=== PATIENT | female | born 1995 | race Two or more races ===

== ENCOUNTER 2019-06-30 14:39 | Emergency (ER) | payer OTHER ==
[2019-06-30 15:54] LABS: Bilirubin Negative (Negative); Blood, Urine Negative (Negative); Clarity Clear (Clear); Glucose, Urine (Dipstick) Normal (Negative); Leukocyte 75 Leu/uL (Negative); Nitrite Negative (Negative); Protein, Urine (Dipstick) 10 mg/dL (Neg-Trace); RBC/HPF 0-3 HPF (0-3); Squamous Epithelial 0-3 HPF (0-3); Urobilinogen Normal mg/dL (Less than 2)
[2019-06-30 16:09] LABS: Bacteria/HPF 1+ HPF (None Seen); Mucous/LPF 1+ LPF (<2+)
[2019-06-30 16:34] LABS: #Basophils 0.1 thou/uL (0.0-0.2); #Eosinphils 0.1 thou/uL (0.0-0.7); #Monocytes 0.9 thou/uL (0.11-0.59); #Neutrophils 7.6 thou/uL (1.40-6.50); %Basophils 1.1 % (0.0-1.0); %Eosinophils 1.1 % (0.0-10.0); %Lymphocytes 25.5 % (21.0-51.0); %Neutrophils 64.3 % (42.0-75.0); Hemoglobin 12.2 g/dL (12.0-16.0); Mean Corpuscular HGB CONC 32.6 g/dL (32.0-36.0); Mean Corpuscular Hemoglobin 26.1 pg (27.0-31.0); Mean Corpuscular Volume 80.1 fL (78.0-98.0); Mean Platelet Volume 8.4 fL (7.4-10.4); Platelet Count 340 thou/uL (130-400); RBC Distribution Width 14.7 % (11.5-14.5); Red Blood Cell (RBC) Count 4.69 mill/uL (4.20-5.40); White Blood Cell (WBC) Count 11.8 thou/uL (4.8-10.8)
[2019-06-30 16:55] LABS: ALT (SGPT) 12 U/L (8-55); AST (SGOT) 18 U/L (5-34); Albumin 4.4 g/dL (3.5-5.0); Alkaline Phosphatase 68 U/L (40-110); Anion Gap 11 mmol/L (10-20); BUN (Urea Nitrogen) 6 mg/dL (7.0-18.7); Bilirubin, Total 0.6 mg/dL (0.2-1.2); Calc. Creatinine Clearance 0 mL/min (70-130); Calcium 9.6 mg/dL (7.8-10.44); Carbon Dioxide 23 mmol/L (22-29); Chloride 103 mmol/L (98-107); Estimated GFR-MDRD Greater than 90; Globulin 3.2 g/dL (2.4-3.5); Glucose 75 mg/dL (70-105); Potassium 3.8 mmol/L (3.5-5.1); Protein, Total 7.6 g/dL (6.0-8.3); Sodium 133 mmol/L (136-145)
[2019-06-30] MEDS ORDERED: Ondansetron PF 4 MG/2 ML Vial ONE (16:56)
== END 2019-06-30 17:57 | disposition home or self-care (01) ==
LOC: ERS 14:39
DX: O21.9 Vomiting of pregnancy, unspecified (principal); O99.281 Endocrine, nutritional and metabolic diseases complicating pregnancy, first trimester; E06.9 Thyroiditis, unspecified; Z79.899 Other long term (current) drug therapy; Z3A.08 8 weeks gestation of pregnancy
CPT/HCPCS: 80053; 81003; 81015; 85025; 96361; 96374; J2405

== ENCOUNTER 2019-07-26 20:51 | Emergency (ER) | payer OTHER ==
[2019-07-26 22:01] LABS: #Basophils 0.1 thou/uL (0.0-0.2); #Eosinphils 0.1 thou/uL (0.0-0.7); #Lymphocytes 3.2 thou/uL (1.20-3.40); #Monocytes 0.7 thou/uL (0.11-0.59); #Neutrophils 8.1 thou/uL (1.40-6.50); %Basophils 0.7 % (0.0-1.0); %Eosinophils 1.2 % (0.0-10.0); %Lymphocytes 25.8 % (21.0-51.0); %Neutrophils 66.3 % (42.0-75.0); Hemoglobin 13.3 g/dL (12.0-16.0); Mean Corpuscular HGB CONC 33.4 g/dL (32.0-36.0); Mean Corpuscular Volume 83.8 fL (78.0-98.0); Mean Platelet Volume 8.5 fL (7.4-10.4); Platelet Count 304 thou/uL (130-400); RBC Distribution Width 15.9 % (11.5-14.5); Red Blood Cell (RBC) Count 4.76 mill/uL (4.20-5.40); White Blood Cell (WBC) Count 12.2 thou/uL (4.8-10.8)
[2019-07-26 22:21] LABS: ALT (SGPT) 19 U/L (8-55); AST (SGOT) 20 U/L (5-34); Albumin 4.7 g/dL (3.5-5.0); Alkaline Phosphatase 74 U/L (40-110); Anion Gap 14 mmol/L (10-20); BUN (Urea Nitrogen) 4 mg/dL (7.0-18.7); Bilirubin, Total 0.7 mg/dL (0.2-1.2); Calc. Creatinine Clearance 0 mL/min (70-130); Carbon Dioxide 21 mmol/L (22-29); Chloride 102 mmol/L (98-107); Estimated GFR-MDRD Greater than 90; Globulin 3.7 g/dL (2.4-3.5); Glucose 74 mg/dL (70-105); Potassium 3.4 mmol/L (3.5-5.1); Protein, Total 8.4 g/dL (6.0-8.3); Sodium 134 mmol/L (136-145)
[2019-07-26] MEDS ORDERED: Ondansetron PF 4 MG/2 ML Vial ONE (22:48)
[2019-07-26] MEDS ORDERED: Acetaminophen 500 MG TAB ONE (22:48)
[2019-07-26] MEDS ORDERED: Potassium Chloride 20 MEQ TAB ONE (22:48)
[2019-07-26 23:53] LABS: Bacteria/HPF 1+ HPF (None Seen); Bilirubin Negative (Negative); Blood, Urine Negative (Negative); Clarity Clear (Clear); Glucose, Urine (Dipstick) Normal (Negative); Leukocyte 250 Leu/uL (Negative); Mucous/LPF 3+ LPF (<2+); Nitrite Negative (Negative); Protein, Urine (Dipstick) 30 mg/dL (Neg-Trace); RBC/HPF 0-3 HPF (0-3); Urobilinogen Normal mg/dL (Less than 2)
== END 2019-07-26 23:55 | disposition home or self-care (01) ==
LOC: ERS 20:51
DX: O21.9 Vomiting of pregnancy, unspecified (principal); O99.282 Endocrine, nutritional and metabolic diseases complicating pregnancy, second trimester; E86.0 Dehydration; E03.9 Hypothyroidism, unspecified; Z79.899 Other long term (current) drug therapy; Z3A.19 19 weeks gestation of pregnancy
CPT/HCPCS: 80053; 81003; 81015; 83605; 84702; 85025; 96361; 96374; J2405

== ENCOUNTER 2019-08-05 08:41 | Outpatient (CLI) | payer OTHER ==
--- NOTE | 2019-08-05 11:58 | ULT ---
ULTRASOUND THYROID: DATE: 08/05/2019 HISTORY: 23-year-old female with thyroiditis. COMPARISON: None. FINDINGS: Right Lobe: 2.6 x 2.4 x 5.3 cm. Left Lobe: 1.9 x 2.0 x 4.8 cm. Isthmus: 1.2 cm AP. Within the right lobe, there is a large, multilobular, multiseptated, solid mass measuring approximat michael 2.8 x 1.9 x 3.1 cm, centered at midpole, and extending into upper and lower poles. Composition: Solid: 2 points Echogenicity: Hyperechoic: 1 point Shape: Wider than tall: 0 points Margin: Smooth: 0 points Echogenic foci: None: 0 points TI-RADS Category 3: Mildly suspicious Recommendation: FNA if greater than or equal to 2.5 cm. Follow-up if greater than or equal to 1.5 cm (at 1, 3, and 5 years). This nodule has increased blood flow within it demonstrated by Doppler. Actually, there is increased blood flow throughout the entire thyroid gland demonstrated by Doppler. No other discrete solid or cystic lesion is identified. IMPRESSION: 1. Thyromegaly and diffuse hyperemia of the thyroid gland: evidence for thyroiditis. 2. Large, greater than 3 cm, homogeneously hyperechoic solid mass dominating the right lobe of the t hyroid gland. For this Category 3 nodule, TI-RADS classification warrants ultrasound-guided fine need le aspiration biopsy. However, because the patient has thyroiditis, we recommend postponing the biops y until improvement in the thyroiditis after treatment. A follow-up thyroid ultrasound should be perf ormed after clinical improvement. If the dominant thyroid nodule has not decreased in size by then, t hen ultrasound-guided fine needle aspiration biopsy should be performed at that time. POS: [facility], [place]
== END 2019-08-05 08:42 | disposition home or self-care (01) ==
LOC: SCSULT 08:41
PROVIDERS: ATTEND Obstetrics & Gynecology
DX: E06.9 Thyroiditis, unspecified (principal); E01.0 Iodine-deficiency related diffuse (endemic) goiter; E07.89 Other specified disorders of thyroid
CPT/HCPCS: 76536

== ENCOUNTER 2020-02-05 16:34 | Day surgery (SDC) | payer OTHER ==
[2020-02-05 17:12] VITALS: BP 116/77; TEMP 98.3; BMI 29.6
[2020-02-05] MEDS ORDERED: hydrALAZINE 20 MG/ML VIAL SLOW IVP PRN (17:20)
--- NOTE | 2020-02-05 17:20 | PDOC.LDHP ---
Labor and Delivery H&P Chief complaint: contractions HPI: 24yo @ 39.3 complicated by hypothyroidism presents for contractions. Was seen in L&D triage on 01/28 for similar complaint, SVE was 150/-2. Was discharged with return precautions. Has had intermittent ctx since that time, waking and waning. Today had onset of ctx @ 0700 initially q8min and then increased to 3min with increased intensity. Denies any LOF, vaginal bleeding, vaginal discharge, dysuria, JOHN, vision changes, SOB, CP. Endorses good movement. States ctx are similar to previous presentations but just wanted to see what her cervix was. Current gestational age (weeks): 39 (39.3) Grav: 1 Para: 0 OB History Details: No prior Current complications: other (iron def anemia, hypothyroidism, chlamydia in first trimester with both herself and partner treated and MELISA negative.) Current medications: pre-yancy vitamins, iron, other (synthroid) Allergies/Adverse Reactions: Allergies Allergy/AdvReac Type Severity Reaction Status Date / Time No Known Allergies Allergy Verified 02/05/20 17:15 Social history: none - Physical Exam Abnormal vital signs: Tachycardia to 120s General: NAD, resting, breathing through contractions Heart: RRR Lungs: CTAB Abdomen: gravid Extremeties: no edema FHT: category 1 (accels, no deccels, baseline 150. moderate variability) - Vaginal Exam cm dilated: 1 Effacement: 50% Station: -3 - OB Labs Blood type: O RH: positive Antibody Screen: negative HIV: negative RPR: negative HEPSAg: negative GBS: negative Rubella: immune Additional Labs: ferritin 6 - Plan -: 24yo @ 39.3 complicated by iron def anemia and hypothyroidism presents for contractions #Labor r/o - Term SIUP @ 39.3 in G1 - ctx since 0700 this AM with increased frequency and intensity - Cat 1 strip with accels, no deccels, moderate variability, ctx q3-4min initially and then begin to space out - SVE 1.5/50/-3 by RN - Maternal tachycardia to 120s, afebrile and remained of vitals stable. No s/s of infection. Suspect tachycardia 2/2 pain - No change in SVE from last week triage check - Not in active labor, anticipate discharge home with labor precautions - Will given 1mg stadol for pain and monitor #Hypothyroidism - cont home synthroid #Iron def anemia - cont home iron PCP: Sonal Lyles Dispo: Monitor ctx and pain. Stadol for pain. Encourage PO hydration. Anticipate discharge home with labor precautions. Addendum - Attending - Attending Attestation Date/Time: 02/05/202034 I personally evaluated the patient and discussed the management with Dr. Burnett. I agree with the History, Examination, Assessment and Plan documented above. No e/o active labor. Tachycardia improved with IV fluids. D/c home with precautions.
[2020-02-05] MEDS ORDERED: Butorphanol Tartrate 1 MG/ML VIAL SLOW IVP SCH (18:00)
[2020-02-05] MEDS ORDERED: Butorphanol Tartrate 1 MG/ML VIAL IM SCH (18:00)
[2020-02-05] MEDS ORDERED: Lactated Ringer's 1,000 ML IV SCH (18:45)
--- NOTE | 2020-02-05 21:34 | PDOC.BPN ---
- Brief Progress Note Encounter Date: 02/05/20 Encounter Time: 07:45 Patient given 1L LR for continued tachycardia and little PO intake since presentation. HR improved to high 90s, low 100s after fluid bolus. Continued Cat 1 FHT. Ctx q4-5 minutes with episodes of increased and decreased frequency. Pain not much improved after stadol. Patient states pain has improved at home with Tylenol. Repeat SVE /-3. Discussed with patient she is still in latent labor and this may take hours to days to progress into active labor especially in setting of primigravida. Discussed labor precautions that would warrant return to L&D. Patient and fiance voiced understanding and agreement of discharge plan to continue latent labor at home. All questions answered. Patient discharge home with return precautions given.
== END 2020-02-05 20:35 | disposition home or self-care (01) ==
LOC: L&D/OP 16:34
PROVIDERS: ATTEND Advanced Practice Midwife
DX: O47.1 False labor at or after 37 completed weeks of gestation (principal); O99.283 Endocrine, nutritional and metabolic diseases complicating pregnancy, third trimester; E03.9 Hypothyroidism, unspecified; O99.013 Anemia complicating pregnancy, third trimester; D50.9 Iron deficiency anemia, unspecified; Z3A.39 39 weeks gestation of pregnancy; Z79.899 Other long term (current) drug therapy
CPT/HCPCS: 96360; 96372; 99283; J0595

== ENCOUNTER 2020-02-05 22:45 | Inpatient (IN) | payer OTHER ==
[~2020-02-05 22:45] MED LIST: Bupivacaine 0.25% HCL 30 ML VIAL ONE; Bupivacaine/Epinephrine 0.25% 30 ML VIAL ONE; EPHEDRINE 25 MG/5 ML SYRINGE ONE
[2020-02-05 23:08] VITALS: BMI 29.6
[2020-02-05 23:30] LABS: Amnisure Internal Control QC ACCEPTABLE (ACCEPTABLE); Amnisure Test RUPTURE DETECTED (No Rupture)
[2020-02-05] MEDS ORDERED: Carboprost 250 MCG/ML AMP IM PRN (23:50)
[2020-02-05] MEDS ORDERED: Lidocaine 1% (PF) 30 ML VIAL SC PRN (23:50)
[2020-02-05] MEDS ORDERED: Misoprostol 200 MCG TAB PR PRN (23:50)
[2020-02-05] MEDS ORDERED: Promethazine HCl 25 MG/ML VIAL IM PRN (23:50)
[2020-02-05] MEDS ORDERED: Ibuprofen 800 MG TAB PO PRN (23:50)
[2020-02-05] MEDS ORDERED: hydrALAZINE 20 MG/ML VIAL SLOW IVP PRN (23:50)
[2020-02-05] MEDS ORDERED: Butorphanol Tartrate 1 MG/ML VIAL SLOW IVP PRN (23:50)
[2020-02-05] MEDS ORDERED: Diphenoxylate HCl/Atropine Tablet PO PRN (23:50)
[2020-02-05] MEDS ORDERED: Ondansetron PF 4 MG/2 ML Vial IVP PRN (23:50)
[2020-02-05] MEDS ORDERED: Acetaminophen 500 MG TAB PO PRN (23:50)
[2020-02-05] MEDS ORDERED: Methylergonovine 0.2 MG/ML VIAL IM PRN (23:50)
[2020-02-06 00:19] LABS: Hemoglobin 10.1 g/dL (12.0-16.0); Mean Corpuscular HGB CONC 32.7 g/dL (32.0-36.0); Mean Corpuscular Hemoglobin 26.1 pg (27.0-31.0); Mean Corpuscular Volume 79.9 fL (78.0-98.0); Mean Platelet Volume 10.2 fL (7.4-10.4); Platelet Count 182 thou/uL (130-400); RBC Distribution Width 16.3 % (11.5-14.5); Red Blood Cell (RBC) Count 3.88 mill/uL (4.20-5.40); White Blood Cell (WBC) Count 15.7 thou/uL (4.8-10.8)
[2020-02-06 00:57] LABS: HBSAg Index 0.15 S/CO (0-0.99); Hep B Surf Ag Non-Reactive S/CO (NonReactive)
[2020-02-06 01:00] LABS: Syphilis Antibody Nonreactive (Nonreactive); Syphilis Antibody Index 0.04 S/CO (<1.00 Non-Reactive)
[2020-02-06] MEDS ORDERED: Fentanyl 4 mcg/Bup 0.1% Cadd 100 ML ONE (02:46)
[2020-02-06] MEDS: Lactated Ringer's 1,000 ML IV SCH ×2 (02:50→04:17)
[2020-02-06] MEDS ORDERED: Promethazine HCl 25 MG/ML VIAL IM PRN (03:23)
[2020-02-06] MEDS ORDERED: Acetaminophen 325 MG TAB PO PRN (03:23)
[2020-02-06] MEDS ORDERED: Ondansetron PF 4 MG/2 ML Vial IVP PRN ×2 (03:23→12:02)
[2020-02-06] MEDS ORDERED: diphenhydrAMINE 50 MG/ML VIAL IVP PRN (03:23)
[2020-02-06] MEDS ORDERED: Naloxone HCl 0.4 mg/ml Vial IVP PRN ×2 (03:23)
[2020-02-06] MEDS ORDERED: EPHEDRINE 25 MG/5 ML SYRINGE SLOW IVP PRN (03:23)
[2020-02-06] MEDS ORDERED: Lactated Ringer's 500 ML IV PRN (03:23)
[2020-02-06] MEDS ORDERED: Fentanyl 4 mcg/Bupivacaine 0.1% Cassette 100 ML EPIDURAL SCH (03:30)
[2020-02-06] MEDS ORDERED: Communication Order-Pharmacy FS SCH (03:30)
[2020-02-06] MEDS ORDERED: Bicitra 30 ML UDCUP ONE (08:57)
--- NOTE | 2020-02-06 08:57 | PDOC.LDHP ---
Labor and Delivery H&P Chief complaint: loss of fluid HPI: Patient reports loss of fluid. She was triaged the night before but sent home. After her water broke, she arrived back to the hospital and was 3 cm. Current gestational age (weeks): 39 (and 4) Due date: 02/09/20 Dating criteria: first trimester ultrasound Grav: 1 Para: 0 Current complications: none Abnormal US findings: No Past Medical History: Hypothyroid Current medications: pre- vitamins, other (Synthroid 50mcgs) Previous surgical history: other (Thyroid biopsy) Allergies/Adverse Reactions: Allergies Allergy/AdvReac Type Severity Reaction Status Date / Time No Known Allergies Allergy Verified 02/05/20 23:04 Social history: none - Physical Exam Vital signs reviewed and normal: yes General: breathing through contractions Lungs: nonlabored breathing Abdomen: gravid FHT: category 2 ( tachycardia. Decels after pushing.) - Vaginal Exam cm dilated: 10 Effacement: 100% Station: 0 - OB Labs Blood type: O RH: positive Antibody Screen: negative HIV: negative RPR: negative HEPSAg: negative 1 hour GCT: negative GBS: negative Urine drug screen: negative Rubella: immune - Assessment L&D Assessment: term rupture in membranes - Plan Plan: admit to L&D, informed consent obtained, anesthesia consult for pain management -: Treated for chorioamnionitis after temp of 101.6 rectal temp with Ampicillin 2gm q6 and Gentamycin 80mg Q8hr.
[2020-02-06] MEDS ORDERED: Ampicillin 2 GM in Sodium Chloride 0.9% 100 ML IVPB SCH ×2 (09:00→15:45)
[2020-02-06] MEDS ORDERED: Gentamicin Sulfate 80 MG in Premix Bag 1 BAG IVPB SCH ×2 (10:00→15:45)
--- NOTE | 2020-02-06 11:00 | PDOC.OPDEL ---
OB Operative/Delivery Note Delivery Dr/Surgeon: Light Pre-Delivery Diagnosis: active labor Procedure/Post Delivery Dx: spontaneous vaginal delivery Weeks gestation: 39 Anesthesia: epidural - Findings A Sex: male - 1 min: 8 - 5 min: 9 - Additional Findings/Plan Placenta delivered: spontaneous Estimated blood loss: 50mL Post delivery plan: routine recovery
[2020-02-06 11:47] LABS: SARS-CoV-2 MS2 Positive; SARS-CoV-2 N Gene Negative; SARS-CoV-2 S Gene Negative; SARS-CoV-2 by NAA Not Detected (NotDetected); SARS-CoV-2 orf1ab Negative
[2020-02-06] MEDS: NS / Oxytocin 40 units/1000ml 1,000 ML IV PRN ×2 (11:50→11:51)
[2020-02-06] MEDS ORDERED: NS / Oxytocin 40 units/1000ml 1,000 ML IV SCH (12:02)
[2020-02-06] MEDS ORDERED: Misoprostol 200 MCG TAB VAG PRN (12:02)
[2020-02-06] MEDS ORDERED: hydrALAZINE 20 MG/ML VIAL SLOW IVP PRN (12:02)
[2020-02-06] MEDS ORDERED: Lanolin Ointment 7 GM TUBE TOP PRN (12:02)
[2020-02-06] MEDS ORDERED: Methylergonovine 0.2 MG/ML VIAL IM PRN (12:02)
[2020-02-06] MEDS ORDERED: Milk Of Magnesia 30 ML UDCUP PO PRN (12:02)
[2020-02-06] MEDS ORDERED: Bisacodyl 10 MG SUPP PR PRN (12:02)
[2020-02-06] MEDS ORDERED: HYDROcodone/Acetaminophen 5/325 mg Tablet PO PRN ×2 (12:02)
[2020-02-06] MEDS ORDERED: Benzocaine-Menthol 82.5 ML CAN TOP PRN (12:02)
[2020-02-06] MEDS: Ibuprofen 800 MG TAB PO SCH ×2 (13:51→21:20)
[2020-02-06] MEDS ORDERED: Sodium Chloride 0.9% 10 ML ONE (16:25)
[2020-02-06] MEDS: Ferrous Sulfate 325 MG TAB PO SCH (17:15)
[2020-02-06] MEDS: Docusate Calcium (SURFAK) 240 MG CAP PO SCH (19:38)
[2020-02-07] MEDS: Levothyroxine Sodium 50 MCG TAB PO SCH (05:37)
[2020-02-07] MEDS: Ibuprofen 800 MG TAB PO SCH ×3 (05:37→21:56)
--- NOTE | 2020-02-07 06:56 | PDOC.PP ---
Post Progress Note Post Day #: 1 PO intake tolerated: yes Flatus: yes Ambulation: yes Vital Signs (12 hours) Temp Pulse Resp BP Pulse Ox 02/07/20 04:00 97.8 F 70 16 106/79 02/07/20 00:00 98.7 F 76 16 101/66 02/06/20 20:00 97.5 F L 71 16 103/75 99 Weight Weight 162 lb - Physical Examination General: NAD Cardiovascular: no m/r/g, RRR Respiratory: clear to auscultation bilaterally, non-labored breathing Abdominal: lochia Extremities: negative homans (B) Neurological: no gross focal deficits Psychiatric: A&Ox3, normal affect Result Diagrams: 02/06/20 00:01 Additional Labs: Post Labs Blood Type O POSITIVE 02/06/20 01:11 Hep Bs Antigen Non-Reactive S/CO (NonReactive) 02/06/20 00:01 - Assessment/Plan doing well no chorio now. home tomorrow
[2020-02-07] MEDS: Ferrous Sulfate 325 MG TAB PO SCH ×2 (07:40→17:18)
[2020-02-07] MEDS: Prenatal Vitamin 1 TAB PO SCH (08:44)
[2020-02-07] MEDS: Docusate Calcium (SURFAK) 240 MG CAP PO SCH ×2 (08:44→21:56)
[2020-02-07] MEDS ORDERED: Adacel (T-DAP) 0.5 ML SYRINGE IM ONE (12:02)
[2020-02-08] MEDS: Levothyroxine Sodium 50 MCG TAB PO SCH (05:40)
[2020-02-08] MEDS: Ibuprofen 800 MG TAB PO SCH (05:40)
[2020-02-08] MEDS: Ferrous Sulfate 325 MG TAB PO SCH (09:17)
[2020-02-08] MEDS: Prenatal Vitamin 1 TAB PO SCH (09:18)
[2020-02-08] MEDS: Docusate Calcium (SURFAK) 240 MG CAP PO SCH (09:18)
[2020-02-08 09:22] VITALS: BP 114/79; TEMP 97.9
== END 2020-02-08 14:55 | disposition home or self-care (01) | DRG 805 ==
LOC: L&D/OP 22:45 → L&D 23:50 → 3SW 02-06 13:41
PROVIDERS: ADMIT Student in an Organized Health Care Education/Training Program; ATTEND Student in an Organized Health Care Education/Training Program
PROC: 10E0XZZ Delivery of Products of Conception, External Approach (ICD-10-PCS; principal; 2020-02-06)
DX: O99.284 Endocrine, nutritional and metabolic diseases complicating childbirth (principal); O41.1230 Chorioamnionitis, third trimester, not applicable or unspecified; Z37.0 Single live birth; Z3A.39 39 weeks gestation of pregnancy; E03.9 Hypothyroidism, unspecified
CPT/HCPCS: 36415; 51702; 84112; 85027; 86780; 86850; 86900; 86901; 87340; 87635; 88307; 96360; 96372; 99283; 99285; J0290; J0595; J1580; J2405; J3490; S0020; U0003